=== PATIENT | female | born 1935 | race Two or more races ===

== ENCOUNTER 2022-04-04 07:37 | Inpatient (IN) | payer OTHER ==
[2022-04-04 08:40] VITALS: BMI 32.9
[2022-04-04] MEDS ORDERED: PIPERACILLIN/TAZOB 3.375 GM 3.375 GM in DEXTROSE 5%-WATER - 50 ML IVPB ONE (09:02)
[2022-04-04] MEDS ORDERED: VANCOMYCIN 1 GM in D5W (PRE-DOCKED) 1,000 MG/250 ML IVPB ONE (09:02)
[2022-04-04] MEDS ORDERED: VANCOMYCIN/WATER FOR INJ (PEG) 1,000 MG/200 ML BAG IVPB ONE (09:10)
[2022-04-04] MEDS ORDERED: PIPERACILLIN/TAZOB 3.375 GM 3.375 GM/50 ML BAG IVPB ONE (09:11)
[2022-04-04 10:04] LABS: HEMATOCRIT 22.7 % (32.4-45.2); HEMOGLOBIN 7.3 GM/dL (10.7-15.3); MCH 25.7 pg (25.7-33.7); MCHC 32.1 g/dl (32.0-36.0); MEAN CELL VOLUME 80.2 fl (80-96); MEAN PLT VOLUME 8.1 fl (7.5-11.1); PLATELET COUNT 468 10^3/uL (134-434); RBC 2.83 M/mm3 (3.60-5.2); RDW 20.5 % (11.6-15.6); WHITE BLOOD COUNT 15.8 K/mm3 (4.0-10.0)
[2022-04-04 10:05] LABS: VENOUS BASE EXCESS 7.2 mmol/L (-2-2); VENOUS PCO2 49.6 mmHg (38-52); VENOUS PH 7.432 (7.310-7.410)
[2022-04-04 10:11] LABS: INR 2.96 (0.83-1.09); PROTHROMBIN TIME (PATIENT) 34.4 SEC (9.7-13.0)
[2022-04-04 10:13] LABS: ACTIVATED PTT 31.3 SECONDS (25.2-36.5)
[2022-04-04 10:26] LABS: MAGNESIUM 1.4 mg/dL (1.8-2.4)
[2022-04-04 10:34] LABS: N-TERMINAL BNP 5533.4 pg/ml (5-450)
[2022-04-04] MEDS ORDERED: MAGNESIUM SULF 50% (8.12 MEQ/2 ML-1 GM VIAL) IVPB ONE (10:41)
[2022-04-04 11:03] LABS: ANISOCYTOSIS 3+; MACROCYTOSIS 0
[2022-04-04 11:59] LABS: CALCIUM 7.9 mg/dL (8.5-10.1)
[2022-04-04 12:01] LABS: ALBUMIN 1.6 g/dl (3.4-5.0); BLOOD UREA NITROGEN 18.9 mg/dL (7-18)
[2022-04-04 12:03] LABS: CREATININE 1.2 mg/dL (0.55-1.3)
[2022-04-04 12:05] LABS: TOT PROT 5.4 g/dl (6.4-8.2)
[2022-04-04] MEDS ORDERED: MAGNESIUM SULFATE IN WATER 2 GM/50 ML IVPB IVPB ONE (12:10)
[2022-04-04 12:14] LABS: BILIRUBIN,TOTAL 0.2 mg/dL (0.2-1)
[2022-04-04] MEDS ORDERED: FUROSEMIDE 40 MG/4 ML INJECTABLE VIAL IVPUSH ONE (12:50)
[2022-04-04 12:53] LABS: BLOOD UREA NITROGEN 19.4 mg/dL (7-18); CALCIUM 8.2 mg/dL (8.5-10.1)
[2022-04-04 12:54] LABS: ALBUMIN 1.7 g/dl (3.4-5.0)
[2022-04-04 12:56] LABS: CREATININE 1.2 mg/dL (0.55-1.3)
[2022-04-04 12:58] LABS: BILIRUBIN,TOTAL 0.3 mg/dL (0.2-1); TOT PROT 5.8 g/dl (6.4-8.2)
[2022-04-04 13:10] LABS: EPI CELLS 21 /uL (0-25.1); HYALINE CASTS 18 /uL (0-3.1); URINE APPEARANCE TURBID; URINE BACTERIA >9,000 /uL (0-1359); URINE BILIRUBIN NEGATIVE (NEGATIVE); URINE COLOR YELLOW; URINE GLUCOSE (UA) NEGATIVE (NEGATIVE); URINE KETONE NEGATIVE (NEGATIVE); URINE LEUK ESTERASE 3+ (NEGATIVE); URINE NITRITE NEGATIVE (NEGATIVE); URINE PROTEIN 1+ (NEGATIVE); URINE UROBILINOGEN 0.2 mg/dL (0.2-1.0); URINE WBC 18048 /uL (0-25.8)
[2022-04-04 14:03] LABS: URINE RBC 1361 /uL (0-23.9); YEAST NEGATIVE (NEGATIVE)
[2022-04-04] MEDS ORDERED: FUROSEMIDE 40 MG/4 ML INJECTABLE VIAL ONE (17:19)
[2022-04-05] MEDS ORDERED: MELATONIN 5 MG TABLETS PO ONE (02:31)
[2022-04-05 03:32] LABS: CHLORIDE 96 mmol/L (98-107); SODIUM 139 mmol/L (136-145)
[2022-04-05 03:34] LABS: ANION GAP 10 MMOL/L (8-16); BLOOD UREA NITROGEN 19.7 mg/dL (7-18); CO2 33 mmol/L (21-32); GLUCOSE,RANDOM 79 mg/dL (74-106)
[2022-04-05] MEDS ORDERED: PHYTONADIONE 10 MG/1 ML AMP IVPB ONE (04:57)
[2022-04-05] MEDS ORDERED: PATIENT'S OWN MEDICATION (NON-FORMULARY) (Alendronate Sodium [Alendronate Sodium] 70 MG Ta PO SCH (05:45)
[2022-04-05] MEDS ORDERED: PHYTONADIONE 10 MG/1 ML AMP ONE (06:30)
[2022-04-05 06:38] LABS: BASO % 0.4 % (0-2.0); EOS % 0.2 % (0-4.5); HEMATOCRIT 33.2 % (32.4-45.2); HEMOGLOBIN 10.6 GM/dL (10.7-15.3); LYMPH % 8.5 % (8-40); MCH 26.5 pg (25.7-33.7); MCHC 31.8 g/dl (32.0-36.0); MEAN CELL VOLUME 83.3 fl (80-96); MEAN PLT VOLUME 7.9 fl (7.5-11.1); MONO % 5.9 % (3.8-10.2); PLATELET COUNT 482 10^3/uL (134-434); RBC 3.99 M/mm3 (3.60-5.2); RDW 19.8 % (11.6-15.6); WHITE BLOOD COUNT 15.9 K/mm3 (4.0-10.0)
[2022-04-05] MEDS: FUROSEMIDE 40 MG TABLET (FP) PO SCH ×2 (06:45→15:03)
[2022-04-05] MEDS ORDERED: LEVOTHYROXINE NA 125 MCG TABLET (FP) PO SCH (07:00)
[2022-04-05 07:03] LABS: INR 2.04 (0.83-1.09); PROTHROMBIN TIME (PATIENT) 23.6 SEC (9.7-13.0)
[2022-04-05 08:18] LABS: BASO % 0.6 % (0-2.0); EOS % 0.3 % (0-4.5); HEMATOCRIT 35.1 % (32.4-45.2); HEMOGLOBIN 11.1 GM/dL (10.7-15.3); LYMPH % 6.5 % (8-40); MCH 26.4 pg (25.7-33.7); MCHC 31.6 g/dl (32.0-36.0); MEAN CELL VOLUME 83.3 fl (80-96); MEAN PLT VOLUME 7.7 fl (7.5-11.1); MONO % 5.9 % (3.8-10.2); NEUT % 86.7 % (42.8-82.8); PLATELET COUNT 454 10^3/uL (134-434); RBC 4.22 M/mm3 (3.60-5.2); RDW 19.7 % (11.6-15.6); WHITE BLOOD COUNT 15.9 K/mm3 (4.0-10.0)
[2022-04-05] MEDS ORDERED: CEFUROXIME AXETIL 500 MG TABLET PO SCH (10:00)
[2022-04-05] MEDS ORDERED: AMIODARONE HCL 200 MG TABLET PO SCH (10:00)
[2022-04-05] MEDS ORDERED: LOSARTAN POTASSIUM 25 MG TABLET PO SCH (10:00)
[2022-04-05] MEDS ORDERED: PANTOPRAZOLE SODIUM 40 MG VIAL IVPUSH SCH (10:00)
[2022-04-05] MEDS ORDERED: CARVEDILOL 6.25 MG TABLET (FP) PO SCH (10:00)
[2022-04-05] MEDS ORDERED: FERROUS SO4 325 MG TABLET (FP) PO SCH (10:00)
[2022-04-05] MEDS ORDERED: CARVEDILOL 6.25 MG TABLET (FP) ONE (10:16)
[2022-04-05] MEDS ORDERED: FERROUS SO4 325 MG TABLET (FP) ONE (10:16)
[2022-04-05] MEDS ORDERED: AMIODARONE HCL 200 MG TABLET ONE (10:16)
[2022-04-05] MEDS ORDERED: PANTOPRAZOLE SODIUM 40 MG VIAL ONE (10:18)
[2022-04-05 12:10] VITALS: RESP 18
[2022-04-05 15:36] VITALS: BP 107/49; PULSE 63; TEMP 97.8
[2022-04-05] MEDS ORDERED: GABAPENTIN 300 MG CAPSULE PO SCH (22:00)
[2022-04-05] MEDS ORDERED: ATORVASTATIN CA 10 MG TABLET (FP) PO SCH (22:00)
== END 2022-04-05 21:48 | disposition short-term general hospital (02) | DRG 720 ==
LOC: JER 07:37 → JERBED 13:11 → J4W 04-05 12:55
PROVIDERS: ADMIT Internal Medicine
DX: A41.9 Sepsis, unspecified organism (principal); I48.0 Paroxysmal atrial fibrillation; Z79.01 Long term (current) use of anticoagulants; E03.9 Hypothyroidism, unspecified; I13.0 Hypertensive heart and chronic kidney disease with heart failure and stage 1 through stage 4 chronic kidney disease, or unspecified chronic kidney disease; E11.22 Type 2 diabetes mellitus with diabetic chronic kidney disease; N18.9 Chronic kidney disease, unspecified; I50.32 Chronic diastolic (congestive) heart failure; M46.28 Osteomyelitis of vertebra, sacral and sacrococcygeal region; I21.A1 Myocardial infarction type 2; D64.9 Anemia, unspecified; L89.154 Pressure ulcer of sacral region, stage 4; Z74.01 Bed confinement status; Z99.3 Dependence on wheelchair; N39.0 Urinary tract infection, site not specified; R19.7 Diarrhea, unspecified; Z85.51 Personal history of malignant neoplasm of bladder
CPT/HCPCS: 0241U-QW; 36415; 36430; 71045-TC-FY; 71260-TC; 74177-TC; 80048; 80053; 81003; 82272; 82803; 83605; 83735; 83880; 84484; 85025; 85610; 85730; 86850; 86900; 86901; 86922; 87040; 87086; 87186; 93005; 93010; 93306-TC; 99285-25; P9058; Q9967